=== PATIENT | female | born 1990 | race Caucasian/White ===

== ENCOUNTER 2017-07-29 22:05 | Emergency (ER) | payer BC, OTHER ==
[~2017-07-29] VITALS: Ht 165.1 cm; Wt 72.5 kg
[~2017-07-29 22:05] MED LIST: SUMA25TA4 PO
[2017-07-29 22:06] VITALS: BP 127/78
[2017-07-29] MEDS ORDERED: SODIUM CHLORIDE FLUSH 10ML SYR IVF ONE (22:30)
[2017-07-29] MEDS ORDERED: DEXAMETHASONE 4 MG/ML, 1ML IVPush ONE (22:30)
[2017-07-29] MEDS ORDERED: METOCLOPRAMIDE 5 MG/ML, 2ML IVPush ONE (22:30)
[2017-07-29] MEDS ORDERED: KETOROLAC 30 MG/1 ML IVPush ONE (22:30)
[2017-07-29] MEDS ORDERED: DEXAMETHASONE 4 MG/ML, 1ML ONE (22:41)
[2017-07-29] MEDS ORDERED: KETOROLAC 30 MG/1 ML ONE (22:41)
[2017-07-29] MEDS ORDERED: METOCLOPRAMIDE 5 MG/ML, 2ML ONE (22:41)
== END 2017-07-30 00:16 | disposition home or self-care (01) ==
LOC: ED 23:59
DX: R51 Headache (principal); G43.909 Migraine, unspecified, not intractable, without status migrainosus
CPT/HCPCS: 96374; 96375; 99284; J1100; J1885; J2765

== ENCOUNTER 2018-07-12 13:35 | Emergency (ER) | payer OTHER ==
[~2018-07-12] VITALS: Ht 162.6 cm; Wt 72.6 kg
[2018-07-12 13:40] VITALS: BP 120/85
--- NOTE | 2018-07-12 14:02 | NUR ---
Pt transported to imaging on [facility].
--- NOTE | 2018-07-12 14:13 | NUR ---
Pt back to room from imaging. Both bedrails up for safety measures. NADN. No needs expessed.
[2018-07-12] MEDS ORDERED: KETOROLAC 30 MG/1 ML ONE (14:30)
[2018-07-12] MEDS ORDERED: METHOCARBAMOL 750 MG TABLET ONE (14:30)
[2018-07-12] MEDS ORDERED: KETOROLAC 30 MG/1 ML IM ONE (14:30)
[2018-07-12] MEDS ORDERED: METHOCARBAMOL 750 MG TABLET PO ONE (14:30)
== END 2018-07-12 14:58 | disposition home or self-care (01) ==
LOC: ED 14:48
DX: S16.1XXA Strain of muscle, fascia and tendon at neck level, initial encounter (principal); S09.8XXA Other specified injuries of head, initial encounter; W22.8XXA Striking against or struck by other objects, initial encounter; Y93.89 Activity, other specified; Y92.89 Other specified places as the place of occurrence of the external cause; Y99.8 Other external cause status
CPT/HCPCS: 70450; 72125; 96372; 99284; J1885